=== PATIENT | female | born 1995 | race Two or more races ===

== ENCOUNTER 2018-12-20 21:48 | Emergency (ER) | payer OTHER ==
[~2018-12-20] VITALS: Ht 162.6 cm; Wt 64.9 kg
[2018-12-20] MEDS ORDERED: PRENATABS FA T1 EACH (21:54)
[2018-12-20] MEDS ORDERED: PEPCID AC20 MG PO (22:48)
[2018-12-20] MEDS ORDERED: INTESTINEX680 M1 PO (22:48)
== END 2018-12-20 23:02 ==
LOC: ER 21:48
DX: O26.892 Other specified pregnancy related conditions, second trimester (principal); T62.8X1A Toxic effect of other specified noxious substances eaten as food, accidental (unintentional), initial encounter; Z34.02 Encounter for supervision of normal first pregnancy, second trimester; Y92.511 Restaurant or cafe as the place of occurrence of the external cause

== ENCOUNTER 2019-01-29 12:51 | Emergency (ER) | payer OTHER ==
[~2019-01-29] VITALS: Ht 162.6 cm; Wt 68.0 kg
[~2019-01-29 12:51] MED LIST: INTESTINEX680 M1 PO; PEPCID AC20 MG PO; PRENATABS FA T1 EACH
[2019-01-30] MEDS ORDERED: ZOFRAN ODT4 MG PO (07:49)
[2019-01-30] MEDS ORDERED: PEPCID40 MG PO (07:49)
== END 2019-01-30 08:28 | disposition home or self-care (01) ==
LOC: ER 12:51
DX: O26.892 Other specified pregnancy related conditions, second trimester (principal); K29.70 Gastritis, unspecified, without bleeding; Z34.82 Encounter for supervision of other normal pregnancy, second trimester

== ENCOUNTER → 2019-04-26 | Outpatient (CLI) | payer OTHER ==
[~2019-04-26] MED LIST changes: +PEPCID40 MG PO; +ZOFRAN ODT4 MG PO
== END | disposition home or self-care (01) ==
LOC: SONOGRAMA 11:24
DX: N64.4 Mastodynia (principal)

== ENCOUNTER 2019-04-29 07:47 | Inpatient (IN) | payer OTHER ==
[~2019-04-29] VITALS: Ht 162.6 cm; Wt 71.7 kg
== END 2019-05-01 14:53 | disposition home or self-care (01) | DRG 807 ==
LOC: OB/GYN 07:47 → LDR 07:47 → OB/GYN 15:22
PROVIDERS: ADMIT Obstetrics & Gynecology
PROC: 10E0XZZ Delivery of Products of Conception, External Approach (ICD-10-PCS; principal; 2019-04-29)
PROC: 4A0HXFZ Measurement of Products of Conception, Cardiac Rhythm, External Approach (ICD-10-PCS; 2019-04-29)
PROC: 0UQMXZZ Repair Vulva, External Approach (ICD-10-PCS; 2019-04-29)
DX: O71.82 Other specified trauma to perineum and vulva (principal); Z37.0 Single live birth; Z3A.39 39 weeks gestation of pregnancy; Z22.330 Carrier of Group B streptococcus